=== PATIENT | male | born 1980 | race Caucasian/White ===

== ENCOUNTER 2016-05-27 12:10 | Emergency (ER) | payer SELFPAY ==
[~2016-05-27] VITALS: Ht 182.9 cm; Wt 88.0 kg
[2016-05-27 13:14] VITALS: BP 121/72
== END 2016-05-27 13:26 | disposition home or self-care (01) ==
LOC: ER 12:16
DX: S31.109D Unspecified open wound of abdominal wall, unspecified quadrant without penetration into peritoneal cavity, subsequent encounter (principal); Z48.00 Encounter for change or removal of nonsurgical wound dressing; Z76.0 Encounter for issue of repeat prescription

== ENCOUNTER 2016-06-01 12:36 | Emergency (ER) | payer MEDICAID ==
[~2016-06-01] VITALS: Ht 182.9 cm; Wt 88.0 kg
[2016-06-01 13:14] VITALS: BP 124/80
== END 2016-06-01 14:43 | disposition home or self-care (01) ==
LOC: ER 12:39
DX: W34.09XD Accidental discharge from other specified firearms, subsequent encounter (principal); Z48.02 Encounter for removal of sutures